=== PATIENT | female | born 2000 | race Caucasian/White ===

== ENCOUNTER → 2022-04-24 | Outpatient (CLI) | payer SELFPAY ==
[~2022-04-24] VITALS: Ht 167.6 cm; Wt 65.0 kg
[2022-04-24 10:10] VITALS: BP 108/76
[2022-04-24 11:04] LABS: BASO # 0.05 K/mm3 (0.02-0.10); EOS # 0.05 K/mm3 (0.04-0.40); EOS % 0.4 % (0.1-4.0); HEMATOCRIT 45.7 % (35.0-45.0); HEMOGLOBIN 14.9 g/dL (12.0-15.0); LYMPH# 1.32 K/mm3 (1.20-3.40); MEAN CELL VOLUME 83 fl (78-95); MEAN CORPUSCULAR HEMOGLOBIN 27 pg (26-32); MEAN CORPUSCULAR HGB CONC 33 g/dL (33-37); MEAN PLATELET VOLUME 11.4 fl (7.4-10.4); MONO # 1.32 K/mm3 (0.10-0.60); NEU # 9.93 K/mm3 (1.40-6.50); PLATELET COUNT 258 K/mm3 (130-400); RED BLOOD COUNT 5.53 M/mm3 (4.10-5.30); WHITE BLOOD COUNT 12.7 K/mm3 (4.8-10.8)
[2022-04-24 11:07] LABS: ALBUMIN 4.3 g/dL (3.5-5.0)
[2022-04-24 11:08] LABS: SODIUM 135 mmol/L (136-145)
[2022-04-24 11:09] LABS: CALCIUM 9.6 mg/dL (8.3-10.5)
[2022-04-24 11:10] LABS: GLUCOSE 82 mg/dL (65-105); TOTAL PROTEIN 10.2 g/dL (6.4-8.3)
[2022-04-24 11:12] LABS: TOTAL BILIRUBIN 0.3 mg/dL (0.2-1.2)
[2022-04-24 11:15] LABS: AST-SGOT 49 U/L (5-34)
[2022-04-24 11:17] LABS: ALT/SGPT 21 U/L (0-55)
[2022-04-24 11:23] LABS: CARBON DIOXIDE 17 mmol/L (22-29)
[2022-04-24 14:38] VITALS: BP 103/73
== END ==
LOC: AMSURD 09:45
PROVIDERS: Nurse Practitioner Primary Care
DX: Z77.121 Contact with and (suspected) exposure to harmful algae and algae toxins (principal); E86.0 Dehydration; R50.9 Fever, unspecified
CPT/HCPCS: J1885; J7030